=== PATIENT | female | born 1955 | race African-American/Black ===

== ENCOUNTER 2019-10-08 17:44 | Emergency (ER) | payer SELFPAY ==
--- NOTE | 2019-10-08 18:08 | ER Document Report ---
ED Medical Screen (RME) - General Chief Complaint: Blood Pressure Problem Stated Complaint: HIGH BLOOD PRESSURE Time Seen by Provider: 10/08/19 17:58 Notes: Patient is a 64-year-old female with a history of hypertension who presents emergency department with a chief complaint of headache. Patient reports she had an acute onset of a headache around 4:30 PM. Patient reports at that time she did have some blurred vision. Patient reports since then the blurred vision has improved but she continues to have a headache. Patient reports she does take amlodipine 10 mg daily but took a second dose around 5 PM yesterday thought her blood pressure was elevated. Patient denies numbness or tingling to her upper or lower extremities/facial area. Patient reports she feels heaviness in both of her legs. Denies recent illness. Denies trauma. TRAVEL OUTSIDE OF THE [place] IN LAST 30 DAYS: No - Related Data Allergies/Adverse Reactions: caffeine Allergy (Verified 10/08/19 18:00) Physical Exam - Vital signs Vitals: Temp Pulse Resp BP Pulse Ox 97.7 F 99 20 160/85 H 99 10/08/19 17:49 10/08/19 17:49 10/08/19 17:49 10/08/19 17:49 10/08/19 17:49 - HEENT Head: Normocephalic Pupils: PERRL Course - Re-evaluation Re-evalutation: 10/08/19 18:07 I have greeted and performed a rapid initial assessment of this patient. A comprehensive ED assessment and evaluation of the patient, analysis of test results and completion of the medical decision making process will be conducted by additional ED providers. - Vital Signs Vital signs: Temp Pulse Resp BP Pulse Ox 97.7 F 99 20 160/85 H 99 10/08/19 17:49 10/08/19 17:49 10/08/19 17:49 10/08/19 17:49 10/08/19 17:49
--- NOTE | 2019-10-08 18:32 | RADIOLOGY REPORT (SQ) ---
EXAM DESCRIPTION: CHEST 2 VIEWS COMPLETED DATE/TIME: 10/08/2019 6:18 pm REASON FOR STUDY: Blurred vision, headache COMPARISON: None. EXAM PARAMETERS: NUMBER OF VIEWS: two views TECHNIQUE: Digital Frontal and Lateral radiographic views of the chest acquired. RADIATION DOSE: NA LIMITATIONS: none FINDINGS: LUNGS AND PLEURA: No opacities, masses or pneumothorax. No pleural effusion. MEDIASTINUM AND HILAR STRUCTURES: No masses or contour abnormalities. HEART AND VASCULAR STRUCTURES: Heart normal size. No evidence for failure. BONES: No acute findings. HARDWARE: None in the chest. OTHER: No other significant finding. IMPRESSION: NO ACUTE RADIOGRAPHIC FINDING IN THE CHEST. TECHNICAL DOCUMENTATION: JOB ID: [id number] 2010 [employer]- All Rights Reserved Reading location - IP/workstation name: [email or web address]
--- NOTE | 2019-10-08 18:59 | RADIOLOGY REPORT (SQ) ---
EXAM DESCRIPTION: CT HEAD WITHOUT COMPLETED DATE/TIME: 10/08/2019 6:30 pm REASON FOR STUDY: Blurred vision, headache COMPARISON: None. TECHNIQUE: Axial images acquired through the brain without intravenous contrast. Images reviewed wi th bone, brain and subdural windows. Additional sagittal and coronal reconstructions were generated. Images stored on PACS. All CT scanners at this facility use dose modulation, iterative reconstruction, and/or weight based d osing when appropriate to reduce radiation dose to as low as reasonably achievable (ALARA). [facility]: Dose Right [facility]: CareDose [facility]: Dose Right [facility]: Teradose 4D [facility]: [employer] RADIATION DOSE: CT Rad equipment meets quality standard of care and radiation dose reduction techniq ues were employed. CTDIvol: 53.2 mGy. DLP: 937 mGy-cm. mGy. LIMITATIONS: None. FINDINGS: VENTRICLES: Normal size and contour. CEREBRUM: No masses. No hemorrhage. No midline shift. No evidence for acute infarction. Normal gra y/white matter differentiation. No areas of low density in the white matter. CEREBELLUM: No masses. No hemorrhage. No alteration of density. No evidence for acute infarction. EXTRAAXIAL SPACES: No fluid collections. No masses. ORBITS AND GLOBE: No intra- or extraconal masses. Normal contour of globe without masses. CALVARIUM: No fracture. PARANASAL SINUSES: No fluid or mucosal thickening. SOFT TISSUES: No mass or hematoma. OTHER: No other significant finding. IMPRESSION: NORMAL BRAIN CT WITHOUT CONTRAST. EVIDENCE OF ACUTE STROKE: NO. COMMENT: Quality ID # [id number]: Final reports with documentation of one or more dose reduction techniques (e.g., Automated exposure control, adjustment of the mA and/or kV according to patient size, use of iterative reconstruction technique) TECHNICAL DOCUMENTATION: JOB ID: [id number] 2010 [employer]- All Rights Reserved Reading location - IP/workstation name: [email or web address]
--- NOTE | 2019-10-08 20:11 | EKG REPORT ---
SEVERITY:- NORMAL ECG - SINUS RHYTHM : Confirmed by: Chance Hope MD 08-Oct-2019 20:10:57
[2019-10-08 20:22] LABS: ABSOLUTE EOSINOPHILS # (AUTO) 0.1 10^3/uL (0.0-0.6); ABSOLUTE LYMPHOCYTES (AUTO) 1.4 10^3/uL (0.5-4.7); ABSOLUTE MONOCYTES (AUTO) 0.4 10^3/uL (0.1-1.4); ABSOLUTE NEUT (AUTO) 3.9 10^3/uL (1.7-8.2); BASOPHILS % (AUTO) 0.7 % (0-2); HEMATOCRIT 36.7 % (36.0-47.0); HEMOGLOBIN 12.2 g/dL (12.0-15.5); LYMPHOCYTES % (AUTO) 23.5 % (13-45); MEAN CORPUSCULAR HEMOGLOBIN 25.9 pg (27.0-33.4); MEAN CORPUSCULAR HGB CONC 33.3 g/dL (32.0-36.0); MEAN CORPUSCULAR VOLUME 78 fl (80-97); MONOCYTES % (AUTO) 7.6 % (3-13); PLATELET COUNT 327 10^3/uL (150-450); RED BLOOD COUNT 4.71 10^6/uL (3.72-5.28); RED CELL DISTRIBUTION WIDTH 14.6 % (11.5-14.0); SEGMENTED NEUTROPHILS % (AUTO) 67.2 % (42-78); TOTAL CELLS COUNTED % (AUTO) 100 %; WHITE BLOOD COUNT 5.8 10^3/uL (4.0-10.5)
--- NOTE | 2019-10-08 20:34 | ER Document Report ---
Entered by SAHIL OVIEDO SCRIBE 10/08/191954 Acting as scribe for:ELIO VASQUEZ DO ED General - General Chief Complaint: Blood Pressure Problem Stated Complaint: HIGH BLOOD PRESSURE Time Seen by Provider: 10/08/19 17:58 Information source: Patient Notes: 64-year-old female presents to the emergency department complaining of an elevated blood pressure that she noticed last night. Patient explains that during voodoo last night, she could feel her blood pressure was high. Patient r eports having a headache this morning that felt like it was at "the top of my head". Patient states that she had some food and laid down. She took her blood pressure and took some blood pressure medication. Patient states that when she got up, her eyes went blurry and her headache returned. Patient notes that her vision is better and she still has a mild headache. Patient denies gait changes, cough, rhinorrhea and sick contact. TRAVEL OUTSIDE OF THE [place] IN LAST 30 DAYS: No - Related Data Allergies/Adverse Reactions: caffeine Allergy (Verified 10/08/19 18:00) Past Medical History - General Information source: Patient - Social History Smoking Status: Never Smoker Cigarette use (# per day): No Chew tobacco use (# tins/day): No Family History: Reviewed & Not Pertinent Patient has suicidal ideation: No Patient has homicidal ideation: No - Past Medical History Cardiac Medical History: Reports: Hx Hypertension Past Surgical History: Reports: Hx Tonsillectomy - Partial Review of Systems - Review of Systems Constitutional: No symptoms reported EENT: See HPI. denies: Nose discharge Cardiovascular: No symptoms reported Respiratory: See HPI, Cough Gastrointestinal: No symptoms reported Genitourinary: No symptoms reported Female Genitourinary: No symptoms reported Musculoskeletal: No symptoms reported Skin: No symptoms reported Hematologic/Lymphatic: No symptoms reported Neurological/Psychological: See HPI. denies: Gait changes -: Yes All other systems reviewed and negative Physical Exam - Vital signs Vitals: Temp Pulse Resp BP Pulse Ox 97.7 F 99 20 160/85 H 99 10/08/19 17:49 10/08/19 17:49 10/08/19 17:49 10/08/19 17:49 10/08/19 17:49 - Notes Notes: General: Alert, appears well. HEENT: Normocephalic. Atraumatic. PERRL. Extraocular movements intact. Oropharynx clear. Neck: Supple. Non-tender. Respiratory: No respiratory distress. Clear and equal breath sounds bilaterally. Cardiovascular: Regular rate and rhythm. Abdominal: Normal Inspection. Non-tender. No distension. Normal Bowel Sounds. Back: No gross abnormalities. Extremities: Moves all four extremities. Upper extremities: Normal inspection. Normal ROM. Lower extremities: Normal inspection. No edema. Normal ROM. Neurological: Normal cognition. AAOx4. Normal speech. Psychological: Normal affect. Normal Mood. Skin: Warm. Dry. Normal color. Course - Re-evaluation Re-evalutation: 10/08/19 20:30 MDM 64 year old female with htn and intermittent headache for at least 2 days. Gradual onset headache without fever, rash or sudden onset. Headache is much better now. Workup here includes Head ct and is reassuring. Discussed follow up and she expressed understanding. - Vital Signs Vital signs: Temp Pulse Resp BP Pulse Ox 97.7 F 99 16 135/78 H 100 10/08/19 17:49 10/08/19 17:49 10/08/19 21:01 10/08/19 21:00 10/08/19 21:01 - Laboratory Result Diagrams: 10/08/19 20:02 10/08/19 20:02 Laboratory results interpreted by me: 10/08/19 10/08/19 20:02 20:02 MCV 78 L MCH 25.9 L RDW 14.6 H Total Protein 8.4 H - EKG Interpretation by Nd EKG shows normal: Sinus rhythm Rate: Normal Rhythm: NSR - NSR Nl [place] [address] elevation or depression my interpretation. Discharge - Discharge Clinical Impression: Headache Qualifiers: Headache type: unspecified Headache chronicity pattern: acute headache Intracta bility: not intractable Qualified Code(s): R51 - Headache Condition: Good Disposition: HOME, SELF-CARE Instructions: Headache ([facility]), High Blood Pressure ([facility]), Tension Headache ([facility]) Additional Instructions: See your doctor in followup. Your blood pressure was mildly elevated here. Be sure and have that rechecked. Prescriptions: Ibuprofen [Motrin 600 mg Tablet] 600 mg PO TID #30 tablet Forms: Elevated Blood Pressure I personally performed the services described in the documentation, reviewed and edited the documentation which was dictated to the scribe in my presence, and it accurately records my words and actions.
[2019-10-08 20:37] LABS: ALBUMIN 4.7 g/dL (3.5-5.0); ALKALINE PHOSPHATASE 53 U/L (38-126); ANION GAP 10 (5-19); ASPARTATE AMINO TRANSFERASE 22 U/L (14-36); BILIRUBIN,TOTAL 1.2 mg/dL (0.2-1.3); BLOOD UREA NITROGEN 20 mg/dL (7-20); CALCIUM 9.6 mg/dL (8.4-10.2); CARBON DIOXIDE 27 mmol/L (22-30); CHLORIDE 102 mmol/L (98-107); GLUCOSE 101 mg/dL (75-110); POTASSIUM 3.9 mmol/L (3.6-5.0); TOTAL PROTEIN 8.4 g/dL (6.3-8.2)
[2019-10-08 21:07] VITALS: BP 135/78
== END 2019-10-08 21:31 | disposition home or self-care (01) ==
LOC: ER 17:44
DX: R51 Headache (principal); I10 Essential (primary) hypertension
CPT/HCPCS: 36415; 70450; 71046; 80053; 84484; 85025; 93005; 93010; 99284

== ENCOUNTER 2020-06-14 10:22 | Emergency (ER) | payer OTHER ==
[2020-06-14] MEDS ORDERED: MAG HYDROX/AL HYDROX/SIMETH SUSP 30 ML UDCUP PO ONE ×2 (10:52→11:56)
[2020-06-14] MEDS ORDERED: LIDOCAINE 2% VISCOUS SOLN 15 ML UDCUP PO ONE ×2 (10:52→11:56)
[2020-06-14] MEDS ORDERED: METOCLOPRAMIDE HCL ORAL SOLN 10 MG/10 ML UDCUP PO ONE (10:52)
--- NOTE | 2020-06-14 10:54 | ER Document Report ---
ED Medical Screen (RME) - General Stated Complaint: POSSIBLE HEART BURN Time Seen by Provider: 06/14/20 10:45 Mode of Arrival: Ambulatory Information source: Patient Notes: 64-year-old female patient with history of hypertension presenting to the emergency department chief complaint of burning in the center of her chest. Patient reports she was diagnosed with acid reflux many years ago however she does not take any medications for it and has not had any problems. She started having a burning/uncomfortable sensation in the middle of her chest last night. She does report eating spaghetti prior to this. She denies any radiation of the pain. Denies any nausea, vomiting, shortness of breath or diaphoresis. No tenderness with palpation across the chest wall. Lung sounds clear and equal bilaterally. Likely gastroesophageal reflux, will give GI cocktail. Given patient's age will also rule out ACS although I feel this is unlikely. I have greeted and performed a rapid initial assessment of this patient. A comprehensive ED assessment and evaluation of the patient, analysis of test results and completion of the medical decision making process will be conducted by additional ED providers. I have specifically instructed the patient or family members with the patient to immediately return to any nursing staff should anything change in the patient's condition or with their chief complaint. TRAVEL OUTSIDE OF THE [place] IN LAST 30 DAYS: No - Related Data Allergies/Adverse Reactions: caffeine Allergy (Verified 06/14/20 10:50) Past Medical History - Past Medical History Cardiac Medical History: Reports: Hx Hypertension Past Surgical History: Reports: Hx Tonsillectomy - Partial Physical Exam - Vital signs Vitals: Temp Pulse Resp BP Pulse Ox 98.6 F 98 16 161/97 H 100 06/14/20 10:33 06/14/20 10:33 06/14/20 10:33 06/14/20 10:33 06/14/20 10:33 Course - Vital Signs Vital signs: Temp Pulse Resp BP Pulse Ox 98.6 F 98 16 161/97 H 100 06/14/20 10:33 06/14/20 10:33 06/14/20 10:33 06/14/20 10:33 06/14/20 10:33
[2020-06-14 11:13] LABS: ABSOLUTE LYMPHOCYTES (AUTO) 1.9 10^3/uL (0.5-4.7); ABSOLUTE MONOCYTES (AUTO) 0.4 10^3/uL (0.1-1.4); ABSOLUTE NEUT (AUTO) 2.8 10^3/uL (1.7-8.2); BASOPHILS % (AUTO) 0.4 % (0-2); EOSINOPHILS % (AUTO) 0.9 % (0-6); HEMATOCRIT 37.4 % (36.0-47.0); HEMOGLOBIN 12.5 g/dL (12.0-15.5); LYMPHOCYTES % (AUTO) 36.1 % (13-45); MEAN CORPUSCULAR HGB CONC 33.6 g/dL (32.0-36.0); MEAN CORPUSCULAR VOLUME 78 fl (80-97); MONOCYTES % (AUTO) 7.5 % (3-13); PLATELET COUNT 354 10^3/uL (150-450); RED BLOOD COUNT 4.82 10^6/uL (3.72-5.28); RED CELL DISTRIBUTION WIDTH 14.5 % (11.5-14.0); SEGMENTED NEUTROPHILS % (AUTO) 55.1 % (42-78); TOTAL CELLS COUNTED % (AUTO) 100 %; WHITE BLOOD COUNT 5.1 10^3/uL (4.0-10.5)
[2020-06-14 11:36] LABS: ALBUMIN 4.9 g/dL (3.5-5.0); ALKALINE PHOSPHATASE 58 U/L (38-126); ANION GAP 11 (5-19); ASPARTATE AMINO TRANSFERASE 25 U/L (14-36); BILIRUBIN,TOTAL 0.8 mg/dL (0.2-1.3); BLOOD UREA NITROGEN 13 mg/dL (7-20); CALCIUM 9.9 mg/dL (8.4-10.2); CARBON DIOXIDE 27 mmol/L (22-30); CHLORIDE 101 mmol/L (98-107); GLUCOSE 105 mg/dL (75-110); POTASSIUM 4.1 mmol/L (3.6-5.0); TOTAL PROTEIN 8.5 g/dL (6.3-8.2)
--- NOTE | 2020-06-14 12:02 | RADIOLOGY REPORT (SQ) ---
EXAM DESCRIPTION: CHEST SINGLE VIEW IMAGES COMPLETED DATE/TIME: 06/14/2020 11:49 am REASON FOR STUDY: epigastric pain COMPARISON: None. EXAM PARAMETERS: NUMBER OF VIEWS: One view. TECHNIQUE: Single frontal radiographic view of the chest acquired. RADIATION DOSE: NA LIMITATIONS: None. FINDINGS: LUNGS AND PLEURA: No opacities, masses or pneumothorax. No pleural effusion. MEDIASTINUM AND HILAR STRUCTURES: No masses. Contour normal. HEART AND VASCULAR STRUCTURES: Heart normal in size. Normal vasculature. BONES: No acute findings. HARDWARE: None in the chest. OTHER: No other significant finding. IMPRESSION: NO ACUTE RADIOGRAPHIC FINDING IN THE CHEST. TECHNICAL DOCUMENTATION: JOB ID: [id number] 2010 [employer]- All Rights Reserved Reading location - IP/workstation name: [email or web address]
--- NOTE | 2020-06-14 12:24 | ER Document Report ---
Entered by EFE STEIN SCRIBE 06/14/20 1155 Acting as scribe for:DREA LAY MD ED General - General Chief Complaint: Chest Wall Injury Stated Complaint: POSSIBLE HEART BURN Time Seen by Provider: 06/14/20 10:45 Mode of Arrival: Ambulatory Information source: Patient, [facility] Records Notes: This 64-year-old female patient was emergency room complaining of substernal burning chest discomfort. She indicates the discomfort is in the right parasternal region. She reports it started about 9 PM last night shortly after eating spaghetti for dinner. She states she did eat a little later than usual. She did go to bed at some point after the discomfort started. She was able to sleep. Patient does have past history of GERD, and at one point had a bleeding ulcer that was treated with upper endoscopy in about 1998. Patient was seen in triage with suspected diagnosis of GERD. She was given a GI cocktail with lidocaine viscus 15 mL, Maalox 30 mL, and Reglan 10 mg p.o. she reports that after drinking the GI cocktail, the pain seemed to decrease somewhat and go into her back. Patient's blood pressure was elevated when she first came in. She does have a history of high blood pressure and states that she takes amlodipine for this. TRAVEL OUTSIDE OF THE [place] IN LAST 30 DAYS: No - Related Data Allergies/Adverse Reactions: caffeine Allergy (Verified 06/14/20 10:50) Home Medications: htn Past Medical History - General Information source: Patient - Social History Smoking Status: Never Smoker Cigarette use (# per day): No Chew tobacco use (# tins/day): No Frequency of alcohol use: None Drug Abuse: None Occupation: Unemployed Lives with: Spouse/Significant other Family History: Reviewed & Not Pertinent Patient has homicidal ideation: No - Past Medical History Cardiac Medical History: Reports: Hx Hypertension Past Surgical History: Reports: Hx Tonsillectomy - Partial Review of Systems - Review of Systems Constitutional: No symptoms reported EENT: No symptoms reported Cardiovascular: No symptoms reported Respiratory: No symptoms reported Gastrointestinal: See HPI, Abdominal pain Genitourinary: No symptoms reported Female Genitourinary: No symptoms reported Musculoskeletal: No symptoms reported Skin: No symptoms reported Hematologic/Lymphatic: No symptoms reported Neurological/Psychological: No symptoms reported -: Yes All other systems reviewed and negative Physical Exam - Vital signs Vitals: Temp Pulse Resp BP Pulse Ox 98.6 F 98 16 161/97 H 100 06/14/20 10:33 06/14/20 10:33 06/14/20 10:33 06/14/20 10:33 06/14/20 10:33 - Notes Notes: Physical Exam: General: Alert, appears well. Fidgety. HEENT: Normocephalic. Atraumatic. PERRL. Extraocular movements intact. Oropharynx clear. Neck: Supple. Non-tender. Respiratory: No respiratory distress. Clear and equal breath sounds bilaterally. No sternal tenderness to palpation. Cardiovascular: Heart rate is 100 with a regular rhythm. Abdominal: Normal Inspection. Non-tender, no epigastric tenderness to palpation. No distension. Normal Bowel Sounds. Back: No gross abnormalities. Extremities: Moves all four extremities. Upper extremities: Normal inspection. Normal ROM. Lower extremities: Normal inspection. No edema. Normal ROM. Neurological: Normal cognition. AAOx4. Normal speech. Psychological: Normal affect. Normal Mood. Skin: Warm. Dry. Normal color. Course - Re-evaluation Re-evalutation: 06/14/20 13:20 Patient reported immediate resolution of her substernal chest burning when she drank the second GI cocktail. She does admit that she was feeling some heartburn type symptoms before laying down for bed shortly after eating. She also reports that she lays flat when she sleeps. I reviewed the management of a GERD with the patient and her spouse. She understands, will get some Prilosec OTC. We will try to elevate the head of her bed. And avoid eating shortly before laying down and avoid hot spicy and acidic type foods and fluids. - Vital Signs Vital signs: Temp Pulse Resp BP Pulse Ox 98.6 F 98 16 161/97 H 100 06/14/20 10:50 06/14/20 10:33 06/14/20 10:33 06/14/20 10:33 06/14/20 10:33 - Laboratory Result Diagrams: 06/14/20 11:02 06/14/20 11:02 Laboratory results interpreted by me: 06/14/20 06/14/20 11:02 11:02 MCV 78 L MCH 26.0 L RDW 14.5 H Total Protein 8.5 H - Diagnostic Test Radiology reviewed: Image reviewed, Reports reviewed - Chest x-ray does not show acute cardiopulmonary process - EKG Interpretation by Me EKG shows normal: Sinus rhythm, [place], Intervals, QRS Complexes, ST-T Waves Rate: Normal - 99 Rhythm: NSR P Waves: LAE When compared to previous EKG there are: No significant change Discharge - Discharge Clinical Impression: GERD (gastroesophageal reflux disease) Qualifiers: Esophagitis presence: esophagitis presence not specified Qualified Code(s): K 21.9 - Gastro-esophageal reflux disease without esophagitis Condition: Stable Disposition: HOME, SELF-CARE Additional Instructions: Reflux Disease (GERD) Gastro-Esophageal Reflux Disease (GERD) is caused by stomach acid refluxing back up into the esophagus. The valve at the end of the esophagus may be weak. This is common in persons with a hiatal hernia. GERD symptoms can include indigestion, chest pain, heartburn, or food "sticking." Certain foods, alcohol, and aspirin can make GERD worse. Treatment depends on the severity. Usually, antacids or acid-suppressing medicines are used. When the esophagus is acutely inflamed, the physician will often prescribe membrane-protective drugs such as Carafate. Some patients benefit from medication such as Reglan that tightens the valve at the top of the stomach. Avoid those foods that bring on your symptoms. For many people, these foods are coffee, chocolate, onions, garlic, and carbonated drinks. Don't use alcohol, aspirin, caffeine, or tobacco. Don't eat late at night -- within 4 hours of bedtime. Don't over-eat. If necessary, elevate the head of your bed about 4 inches so that stomach acid will not roll up into your esophagus. Call the doctor if you develop severe chest pain, inability to swallow fluids, fever, or worsening symptoms. Take one Omeprazole 20 mg tablet(Prilosec OTC) once daily. Eat a bland diet. Do not lay down soon after eating. Take antacids between meals and at bedtime for the next few days. Follow-up with a local primary care provider if not improving. RETURN TO THE EMERGENCY ROOM IF ANY NEW OR WORSENING SYMPTOMS. I personally performed the services described in the documentation, reviewed and edited the documentation which was dictated to the scribe in my presence, and it accurately records my words and actions.
[2020-06-14 13:42] VITALS: BP 152/89
--- NOTE | 2020-06-15 18:08 | EKG REPORT ---
SEVERITY:- ABNORMAL ECG - SINUS RHYTHM FIRST DEGREE AV BLOCK PROBABLE LEFT ATRIAL ABNORMALITY : Confirmed by: Theo Montana MD 15-Jun-2020 18:06:50
== END 2020-06-14 13:42 | disposition home or self-care (01) ==
LOC: ER 10:22
DX: K21.9 Gastro-esophageal reflux disease without esophagitis (principal); I10 Essential (primary) hypertension; Z79.899 Other long term (current) drug therapy; Z91.048 Other nonmedicinal substance allergy status
CPT/HCPCS: 93005; 99285; 36415; 85025; 80053; 84484; 71045; 93010; J3490